=== PATIENT | female | born 1990 | race Caucasian/White ===

== ENCOUNTER 2018-04-16 14:35 | Emergency (ER) | payer MEDICARE, MEDICAID ==
[~2018-04-16] VITALS: Ht 154.9 cm; Wt 50.0 kg
[~2018-04-16 14:35] MED LIST: ATI0.5T PO; BACL10TA PO; CEPH500C5 PO; DULO-31 PO; GABA400C PO; LEVA15HF4 INH
[2018-04-16] MEDS ORDERED: diphenhydrAMINE 25mg capsule PO ONE (16:20)
[2018-04-16] MEDS ORDERED: acetaminophen 325mg tablet PO ONE (16:20)
[2018-04-16 16:58] VITALS: BP 101/58
== END 2018-04-16 17:00 | disposition home or self-care (01) ==
LOC: ER 14:36
DX: G25.2 Other specified forms of tremor (principal); J45.909 Unspecified asthma, uncomplicated; G89.29 Other chronic pain; F41.9 Anxiety disorder, unspecified; F12.90 Cannabis use, unspecified, uncomplicated; Z98.890 Other specified postprocedural states; Z56.0 Unemployment, unspecified; Z79.899 Other long term (current) drug therapy
CPT/HCPCS: 99283; Q0163

== ENCOUNTER 2018-05-27 11:43 | Emergency (ER) | payer MEDICARE, MEDICAID ==
[~2018-05-27] VITALS: Ht 157.5 cm; Wt 49.0 kg
[2018-05-27 11:48] VITALS: BP 107/73
== END 2018-05-27 12:49 | disposition home or self-care (01) ==
LOC: ER 11:44
DX: G89.4 Chronic pain syndrome (principal); J45.909 Unspecified asthma, uncomplicated; F12.90 Cannabis use, unspecified, uncomplicated; Z56.0 Unemployment, unspecified; Z98.890 Other specified postprocedural states
CPT/HCPCS: 99284

== ENCOUNTER 2019-11-01 18:25 | Emergency (ER) | payer MEDICARE, MEDICAID ==
[~2019-11-01] VITALS: Ht 160 cm; Wt 70.5 kg
[~2019-11-01 18:25] MED LIST changes: -CEPH500C5 PO
[2019-11-01 19:32] LABS: HEMOGLOBIN 13.4 g/dl (12.0-16.0); MEAN PLATELET VOLUME 8.2 FL (7.4-10.4); RED BLOOD COUNT 4.32 X10'6 (4.20-5.60)
[2019-11-01 19:34] LABS: BASOPHILS % (AUTO) 0.5 % (0-1); EOSINOPHILS # (AUTO) 0.2 X10'3 (0-0.9); EOSINOPHILS % (AUTO) 2.7 % (0-6); LYMPHOCYTES # (AUTO) 2.3 X10'3 (1.1-4.8); LYMPHOCYTES % (AUTO) 38.2 % (21-51); MEAN CORPUSCULAR HGB CONC 34.4 g/dL (33.0-36.5); MEAN CORPUSCULAR VOLUME 90.1 FL (78-98); MONOCYTES # (AUTO) 0.6 X10'3 (0-0.9); MONOCYTES % (AUTO) 10.1 % (2-12); NEUTROPHILS # (AUTO) 2.9 X10'3 (1.8-7.7); NEUTROPHILS % (AUTO) 48.5 % (42-75); PLATELET COUNT 227 X10'3 (140-440); RED CELL DISTRIBUTION WIDTH 12.9 % (11.5-14.5)
[2019-11-01 19:57] LABS: ALANINE AMINOTRANSFERASE 30 U/L (12-78); ALBUMIN 3.7 G/DL (3.4-5.0); ALBUMIN/GLOBULIN RATIO 1.2 (1.1-1.5); ALKALINE PHOSPHATASE 47 IU/L (46-116); ANION GAP 9 (8-16); ASPARTATE AMINO TRANSFERASE 21 U/L (10-37); BILIRUBIN,TOTAL 0.3 MG/DL (0.1-1.0); BLOOD UREA NITROGEN 9 MG/DL (7-18); BUN/CREATININE RATIO 11.5 (6.6-38.0); CHLORIDE 103 MMOL/L (99-107); CREATININE 0.78 MG/DL (0.40-0.90); GLUCOSE 86 MG/DL (70-104); LIPASE 99 U/L (73-393); POTASSIUM 3.8 MMOL/L (3.5-5.1); SODIUM 140 MMOL/L (135-145); TOTAL CARBON DIOXIDE 28.1 MMOL/L (24-32); TOTAL PROTEIN 6.7 G/DL (6.4-8.2); eGFR 88 ML/MIN
[2019-11-01 20:13] LABS: URINE HCG NEGATIVE (NEG)
[2019-11-01 20:14] LABS: CLARITY,URINE CLEAR (Clear); COLOR,URINE YELLOW (Yellow); GLUCOSE, URINE NEGATIVE (Neg); KETONES,URINE NEGATIVE (Neg); LEUKOCYTE ESTERASE ,URINE NEGATIVE (Neg); NITRITES, URINE NEGATIVE (Neg); OCCULT BLOOD,URINE NEGATIVE (Neg); PROTEIN,URINE NEGATIVE (Neg); UROBILINOGEN,URINE 0.2 E.U/dL (0.2-1.0)
[2019-11-01 20:15] LABS: UA COLLECTION TYPE CLN CATCH MIDSTREAM
[2019-11-01 21:02] VITALS: BP 122/71
== END 2019-11-01 21:03 | disposition home or self-care (01) ==
LOC: ER 18:26
DX: R10.31 Right lower quadrant pain (principal); R10.32 Left lower quadrant pain; R11.2 Nausea with vomiting, unspecified; J45.909 Unspecified asthma, uncomplicated; N83.8 Other noninflammatory disorders of ovary, fallopian tube and broad ligament; G89.29 Other chronic pain; F12.90 Cannabis use, unspecified, uncomplicated; Z98.890 Other specified postprocedural states; Z56.0 Unemployment, unspecified; Z79.899 Other long term (current) drug therapy
CPT/HCPCS: 36415; 80053; 81003; 81025; 83690; 85025; 99283

== ENCOUNTER 2020-05-15 19:27 | Emergency (ER) | payer MEDICARE, MEDICAID ==
[~2020-05-15] VITALS: Ht 157.5 cm; Wt 79.0 kg
[2020-05-15 19:33] VITALS: BP 135/92
== END 2020-05-15 23:15 | disposition home or self-care (01) ==
LOC: ER 19:28
DX: S63.91XA Sprain of unspecified part of right wrist and hand, initial encounter (principal); J45.909 Unspecified asthma, uncomplicated; G89.29 Other chronic pain; F12.90 Cannabis use, unspecified, uncomplicated; Z56.0 Unemployment, unspecified; Z79.899 Other long term (current) drug therapy; X58.XXXA Exposure to other specified factors, initial encounter; Y93.89 Activity, other specified; Y92.89 Other specified places as the place of occurrence of the external cause; Y99.8 Other external cause status
CPT/HCPCS: 99282

== ENCOUNTER 2020-07-26 20:16 | Emergency (ER) | payer MEDICARE, MEDICAID ==
[~2020-07-26] VITALS: Ht 157.5 cm; Wt 77.0 kg
[2020-07-26] MEDS ORDERED: albuterol 2.5 MG/3 ML nebule NEB ONE (20:30)
[2020-07-26] MEDS ORDERED: predniSONE 20 mg tablet PO ONE (21:10)
[2020-07-26] MEDS ORDERED: PRED20TA PO (21:10)
[2020-07-26 21:26] VITALS: BP 121/80
== END 2020-07-26 21:28 | disposition home or self-care (01) ==
LOC: ER 21:06
DX: J45.909 Unspecified asthma, uncomplicated (principal); G89.29 Other chronic pain; F12.90 Cannabis use, unspecified, uncomplicated; Z56.0 Unemployment, unspecified; Z98.890 Other specified postprocedural states; Z79.899 Other long term (current) drug therapy
CPT/HCPCS: 94640; 99283; J7512; 94760

== ENCOUNTER 2020-07-27 23:55 | Emergency (ER) | payer MEDICARE, MEDICAID ==
[~2020-07-27] VITALS: Ht 157.5 cm; Wt 77.0 kg
[~2020-07-27 23:55] MED LIST changes: +PRED20TA PO
[2020-07-28] MEDS ORDERED: morphine 10mg/ml inj. IV ONE ×2 (00:25→02:00)
[2020-07-28 00:44] LABS: BASOPHILS % (AUTO) 0.2 % (0-1); EOSINOPHILS % (AUTO) 0 % (0-6); HEMATOCRIT 36.2 % (35.0-45.0); HEMOGLOBIN 12.2 g/dl (12.0-16.0); LYMPHOCYTES # (AUTO) 1.2 X10'3 (1.1-4.8); MEAN CORPUSCULAR HEMOGLOBIN 30.9 PG (27.0-31.0); MEAN CORPUSCULAR HGB CONC 33.7 g/dL (33.0-36.5); MEAN CORPUSCULAR VOLUME 91.8 FL (78-98); MEAN PLATELET VOLUME 7.4 FL (7.4-10.4); MONOCYTES # (AUTO) 0.3 X10'3 (0-0.9); MONOCYTES % (AUTO) 1.8 % (2-12); NEUTROPHILS # (AUTO) 13.4 X10'3 (1.8-7.7); PLATELET COUNT 318 X10'3 (140-440); RED BLOOD COUNT 3.94 X10'6 (4.20-5.60); RED CELL DISTRIBUTION WIDTH 12.7 % (11.5-14.5); WHITE BLOOD COUNT 14.9 X10'3 (4.5-11.0)
[2020-07-28 00:48] LABS: ALBUMIN 3.3 G/DL (3.4-5.0); ANION GAP 9 (8-16); BLOOD UREA NITROGEN 11 MG/DL (7-18); BUN/CREATININE RATIO 12.6 (6.6-38.0); CALCIUM 8.9 MG/DL (8.5-10.1); CHLORIDE 103 MMOL/L (99-107); CREATININE 0.87 MG/DL (0.40-0.90); GLUCOSE 113 MG/DL (70-104); POTASSIUM 4.3 MMOL/L (3.5-5.1); SODIUM 139 MMOL/L (135-145); TOTAL CARBON DIOXIDE 27.4 MMOL/L (24-32); eGFR 77 ML/MIN
[2020-07-28] MEDS ORDERED: iohexol 300mg/ml 100ml inj. ONE (02:22)
[2020-07-28 02:40] LABS: HCG SERUM QL NEGATIVE
[2020-07-28] MEDS ORDERED: morphine 4 MG/ML inj SYRINge IV ONE (04:50)
[2020-07-28] MEDS ORDERED: DICY10CA88 PO (04:50)
[2020-07-28 05:10] VITALS: BP 102/73
[2020-07-28 15:32] LABS: OCCULT BLOOD STOOL NEGATIVE (Neg)
== END 2020-07-28 05:12 | disposition home or self-care (01) ==
LOC: ER 23:56
DX: R10.30 Lower abdominal pain, unspecified (principal); J45.909 Unspecified asthma, uncomplicated; F41.9 Anxiety disorder, unspecified; G89.29 Other chronic pain; F12.90 Cannabis use, unspecified, uncomplicated; Z98.890 Other specified postprocedural states; Z56.0 Unemployment, unspecified; Z79.899 Other long term (current) drug therapy
CPT/HCPCS: 36415; 74177; 76830; 76856; 80048; 82272; 84703; 85025; 93976; 96374; 96376; 99285; J2270; Q9967

== ENCOUNTER 2020-08-18 19:04 | Emergency (ER) | payer MEDICARE, MEDICAID ==
[~2020-08-18] VITALS: Ht 157.5 cm; Wt 77.3 kg
[~2020-08-18 19:04] MED LIST changes: +DICY10CA88 PO; -PRED20TA PO
[2020-08-18] MEDS ORDERED: ondansetron/PF 4mg/2ml inj IV ONE (19:40)
[2020-08-18] MEDS ORDERED: LORazepam 2 mg/ml vial IV ONE ×2 (19:40→22:50)
[2020-08-18] MEDS ORDERED: morphine 10mg/ml inj. IV ONE ×2 (19:40→21:25)
[2020-08-18 20:02] LABS: CLARITY,URINE CLEAR (Clear); COLOR,URINE YELLOW (Yellow); GLUCOSE, URINE NEGATIVE (Neg); KETONES,URINE TRACE mg/dl (Neg); LEUKOCYTE ESTERASE ,URINE NEGATIVE (Neg); NITRITES, URINE NEGATIVE (Neg); OCCULT BLOOD,URINE NEGATIVE (Neg); PROTEIN,URINE NEGATIVE (Neg)
[2020-08-18 20:03] LABS: URINE HCG NEGATIVE (NEG)
[2020-08-18 20:05] LABS: UA COLLECTION TYPE CLN CATCH MIDSTREAM
[2020-08-18 20:44] LABS: BASOPHILS % (AUTO) 0.8 % (0-1); EOSINOPHILS # (AUTO) 0.2 X10'3 (0-0.9); EOSINOPHILS % (AUTO) 2.6 % (0-6); HEMATOCRIT 36.8 % (35.0-45.0); HEMOGLOBIN 12.4 g/dl (12.0-16.0); LYMPHOCYTES # (AUTO) 2.4 X10'3 (1.1-4.8); LYMPHOCYTES % (AUTO) 39.3 % (21-51); MEAN CORPUSCULAR HEMOGLOBIN 30.7 PG (27.0-31.0); MEAN CORPUSCULAR HGB CONC 33.7 g/dL (33.0-36.5); MEAN PLATELET VOLUME 7.7 FL (7.4-10.4); MONOCYTES # (AUTO) 0.4 X10'3 (0-0.9); MONOCYTES % (AUTO) 6.3 % (2-12); NEUTROPHILS # (AUTO) 3.1 X10'3 (1.8-7.7); PLATELET COUNT 306 X10'3 (140-440); RED BLOOD COUNT 4.04 X10'6 (4.20-5.60); RED CELL DISTRIBUTION WIDTH 12.4 % (11.5-14.5)
[2020-08-18 20:59] LABS: ALANINE AMINOTRANSFERASE 35 U/L (12-78); ALBUMIN 3.8 G/DL (3.4-5.0); ALBUMIN/GLOBULIN RATIO 1.2 (1.1-1.5); ALKALINE PHOSPHATASE 40 IU/L (46-116); ANION GAP 5 (8-16); ASPARTATE AMINO TRANSFERASE 23 U/L (10-37); BILIRUBIN,TOTAL 0.3 MG/DL (0.1-1.0); BLOOD UREA NITROGEN 15 MG/DL (7-18); BUN/CREATININE RATIO 16.3 (6.6-38.0); CALCIUM 8.8 MG/DL (8.5-10.1); CHLORIDE 105 MMOL/L (99-107); CREATININE 0.92 MG/DL (0.40-0.90); GLUCOSE 119 MG/DL (70-104); LIPASE 81 U/L (73-393); POTASSIUM 3.6 MMOL/L (3.5-5.1); SODIUM 139 MMOL/L (135-145); TOTAL CARBON DIOXIDE 28.8 MMOL/L (24-32); TOTAL PROTEIN 6.9 G/DL (6.4-8.2); eGFR 72 ML/MIN
[2020-08-18] MEDS ORDERED: mag hydrox/Alum hydrox/simeth 30ml oral suspension PO ONE (21:25)
[2020-08-18] MEDS ORDERED: pantoprazole 40mg Tablet.DR PO ONE (21:25)
[2020-08-18] MEDS ORDERED: LIDOcaine Viscous 15ml cup MM ONE (21:25)
[2020-08-18 22:39] VITALS: BP 110/79
[2020-08-18] MEDS ORDERED: ketorolac trometh. 30mg/ml inj. IV ONE (22:50)
[2020-08-19] MEDS ORDERED: fentaNYL/PF 50MCG/1 ML 2ML syringe IV ONE
== END 2020-08-19 00:47 | disposition home or self-care (01) ==
LOC: ER 19:05
DX: R10.30 Lower abdominal pain, unspecified (principal); J45.909 Unspecified asthma, uncomplicated; G89.29 Other chronic pain; F41.9 Anxiety disorder, unspecified; F17.200 Nicotine dependence, unspecified, uncomplicated; F12.90 Cannabis use, unspecified, uncomplicated; Z98.890 Other specified postprocedural states; Z56.0 Unemployment, unspecified; Z79.899 Other long term (current) drug therapy
CPT/HCPCS: 36415; 74176; 76856; 80053; 81003; 81025; 83690; 85025; 93976; 96374; 96375; 96376; 99285; J1885; J2060; J2270; J2405; J3010

== ENCOUNTER 2020-09-05 06:22 | Emergency (ER) | payer MEDICARE, MEDICAID ==
[~2020-09-05] VITALS: Ht 157.5 cm; Wt 77.0 kg
[2020-09-05] MEDS ORDERED: normal saline 1000ML IV soln IVB ONE (06:45)
[2020-09-05] MEDS ORDERED: LORazepam 2 mg/ml vial IV ONE (06:45)
[2020-09-05] MEDS ORDERED: fentaNYL/PF 50MCG/1 ML 2ML syringe IV ONE (06:45)
[2020-09-05] MEDS ORDERED: haloperidol lactate 5mg/ml inj IM ONE (06:45)
[2020-09-05 07:11] LABS: BASOPHILS % (AUTO) 0.7 % (0-1); EOSINOPHILS # (AUTO) 0.2 X10'3 (0-0.9); EOSINOPHILS % (AUTO) 3.8 % (0-6); HEMATOCRIT 35.5 % (35.0-45.0); HEMOGLOBIN 12.3 g/dl (12.0-16.0); LYMPHOCYTES # (AUTO) 1.9 X10'3 (1.1-4.8); LYMPHOCYTES % (AUTO) 39.5 % (21-51); MEAN CORPUSCULAR HEMOGLOBIN 31.5 PG (27.0-31.0); MEAN CORPUSCULAR HGB CONC 34.6 g/dL (33.0-36.5); MEAN PLATELET VOLUME 7.1 FL (7.4-10.4); MONOCYTES # (AUTO) 0.5 X10'3 (0-0.9); MONOCYTES % (AUTO) 10.4 % (2-12); NEUTROPHILS # (AUTO) 2.2 X10'3 (1.8-7.7); NEUTROPHILS % (AUTO) 45.6 % (42-75); PLATELET COUNT 276 X10'3 (140-440); RED CELL DISTRIBUTION WIDTH 12.5 % (11.5-14.5); WHITE BLOOD COUNT 4.7 X10'3 (4.5-11.0)
[2020-09-05 07:23] LABS: ALANINE AMINOTRANSFERASE 37 U/L (12-78); ALBUMIN 3.5 G/DL (3.4-5.0); ALBUMIN/GLOBULIN RATIO 1.1 (1.1-1.5); ALKALINE PHOSPHATASE 41 IU/L (46-116); ANION GAP 10 (8-16); ASPARTATE AMINO TRANSFERASE 19 U/L (10-37); BILIRUBIN,TOTAL 0.2 MG/DL (0.1-1.0); BLOOD UREA NITROGEN 12 MG/DL (7-18); BUN/CREATININE RATIO 15.6 (6.6-38.0); CALCIUM 8.5 MG/DL (8.5-10.1); CHLORIDE 104 MMOL/L (99-107); CREATININE 0.77 MG/DL (0.40-0.90); GLUCOSE 93 MG/DL (70-104); LIPASE 97 U/L (73-393); POTASSIUM 4.2 MMOL/L (3.5-5.1); SODIUM 139 MMOL/L (135-145); TOTAL CARBON DIOXIDE 25.5 MMOL/L (24-32); TOTAL PROTEIN 6.7 G/DL (6.4-8.2); eGFR 89 ML/MIN
[2020-09-05 09:05] VITALS: BP 108/76
== END 2020-09-05 09:06 | disposition home or self-care (01) ==
LOC: ER 06:23
DX: R11.15 Cyclical vomiting syndrome unrelated to migraine (principal); R10.30 Lower abdominal pain, unspecified; J45.909 Unspecified asthma, uncomplicated; G89.29 Other chronic pain; F41.9 Anxiety disorder, unspecified; Z98.890 Other specified postprocedural states; Z56.0 Unemployment, unspecified; Z79.899 Other long term (current) drug therapy
CPT/HCPCS: 36415; 80053; 83690; 85025; 96361; 96372; 96374; 96375; 99285; J1630; J2060; J3010; J7030

== ENCOUNTER 2020-09-11 15:05 | Emergency (ER) | payer MEDICARE, MEDICAID ==
[~2020-09-11] VITALS: Ht 157.5 cm; Wt 77.0 kg
[2020-09-11] MEDS ORDERED: haloperidol lactate 5mg/ml inj IM ONE (15:25)
[2020-09-11] MEDS ORDERED: LORazepam 2 mg/ml vial IM ONE (15:25)
[2020-09-11] MEDS ORDERED: morphine 4 MG/ML inj SYRINge IM ONE (15:55)
--- NOTE | 2020-09-11 15:56 | NUR ---
Pt still c/o pain and is sobbing after receiving pain medication. RUI Nix aware. Awaiting additional medication orders.
--- NOTE | 2020-09-11 16:27 | NUR ---
Pt states pain is tolerable and she is ready to be d/c home. Provider aware.
[2020-09-11 16:36] VITALS: BP 119/43
== END 2020-09-11 16:38 | disposition home or self-care (01) ==
LOC: ER 15:05
DX: N80.9 Endometriosis, unspecified (principal); R10.30 Lower abdominal pain, unspecified; J45.909 Unspecified asthma, uncomplicated; G89.29 Other chronic pain; F41.9 Anxiety disorder, unspecified; Z98.890 Other specified postprocedural states; Z56.0 Unemployment, unspecified; Z79.899 Other long term (current) drug therapy
CPT/HCPCS: 96372; 99284; J1630; J2060; J2270

== ENCOUNTER 2020-09-13 16:56 | Emergency (ER) | payer MEDICARE, MEDICAID ==
[~2020-09-13] VITALS: Ht 157.5 cm; Wt 77.3 kg
[2020-09-13] MEDS ORDERED: morphine 4 MG/ML inj SYRINge IV ONE (17:50)
[2020-09-13] MEDS ORDERED: normal saline 1000ML IV soln IVB ONE ×2 (17:50→21:25)
[2020-09-13] MEDS ORDERED: ondansetron/PF 4mg/2ml inj IV ONE (17:50)
[2020-09-13] MEDS ORDERED: pantoprazole 40 MG vial IV ONE (17:50)
[2020-09-13] MEDS ORDERED: LORazepam 2 mg/ml vial IV ONE ×2 (17:50→22:15)
[2020-09-13] MEDS ORDERED: acetaminophen 325mg tablet PO ONE (18:00)
[2020-09-13 18:26] LABS: BASOPHILS % (AUTO) 0.3 % (0-1); EOSINOPHILS # (AUTO) 0.1 X10'3 (0-0.9); EOSINOPHILS % (AUTO) 1.1 % (0-6); HEMATOCRIT 35.3 % (35.0-45.0); HEMOGLOBIN 12.2 g/dl (12.0-16.0); LYMPHOCYTES % (AUTO) 9.7 % (21-51); MEAN CORPUSCULAR HEMOGLOBIN 31.3 PG (27.0-31.0); MEAN CORPUSCULAR HGB CONC 34.5 g/dL (33.0-36.5); MEAN CORPUSCULAR VOLUME 90.8 FL (78-98); MEAN PLATELET VOLUME 7.3 FL (7.4-10.4); MONOCYTES # (AUTO) 0.8 X10'3 (0-0.9); MONOCYTES % (AUTO) 7.2 % (2-12); NEUTROPHILS # (AUTO) 8.6 X10'3 (1.8-7.7); NEUTROPHILS % (AUTO) 81.7 % (42-75); PLATELET COUNT 250 X10'3 (140-440); RED BLOOD COUNT 3.88 X10'6 (4.20-5.60); RED CELL DISTRIBUTION WIDTH 12.1 % (11.5-14.5); WHITE BLOOD COUNT 10.5 X10'3 (4.5-11.0)
[2020-09-13 18:41] LABS: ALANINE AMINOTRANSFERASE 24 U/L (12-78); ALBUMIN 3.4 G/DL (3.4-5.0); ALBUMIN/GLOBULIN RATIO 0.9 (1.1-1.5); ALKALINE PHOSPHATASE 48 IU/L (46-116); ANION GAP 12 (8-16); ASPARTATE AMINO TRANSFERASE 16 U/L (10-37); BILIRUBIN,TOTAL 0.3 MG/DL (0.1-1.0); BLOOD UREA NITROGEN 9 MG/DL (7-18); BUN/CREATININE RATIO 9.7 (6.6-38.0); CALCIUM 8.7 MG/DL (8.5-10.1); CHLORIDE 100 MMOL/L (99-107); CREATININE 0.93 MG/DL (0.40-0.90); GLUCOSE 93 MG/DL (70-104); LIPASE 69 U/L (73-393); SODIUM 138 MMOL/L (135-145); TOTAL CARBON DIOXIDE 25.8 MMOL/L (24-32); TOTAL PROTEIN 7.1 G/DL (6.4-8.2); eGFR 71 ML/MIN
[2020-09-13 18:44] LABS: HCG SERUM QL NEGATIVE
[2020-09-13 19:56] LABS: CLARITY,URINE CLOUDY (Clear); COLOR,URINE YELLOW (Yellow); GLUCOSE, URINE NEGATIVE (Neg); KETONES,URINE NEGATIVE (Neg); LEUKOCYTE ESTERASE ,URINE SMALL (Neg); NITRITES, URINE NEGATIVE (Neg); OCCULT BLOOD,URINE NEGATIVE (Neg); PH,URINE 7.5 (4.8-8.0); PROTEIN,URINE NEGATIVE (Neg); UROBILINOGEN,URINE 0.2 E.U/dL (0.2-1.0)
[2020-09-13 20:04] LABS: UA COLLECTION TYPE CLN CATCH MIDSTREAM
[2020-09-13 20:05] LABS: BACTERIA,URINE FEW /HPF (Neg); RBC,URINE NONE SEEN /HPF (0-2); SQUAMOUS EPITHELIAL CELL,UR MODERATE /LPF (FEW); WBC,URINE 0-4 /HPF (0-4)
[2020-09-13] MEDS: morphine 2 MG/ML inj. syringe IV PRN ×3 (20:19→23:04)
--- NOTE | 2020-09-13 20:20 | NUR ---
RIGHT NARES SWABED FOR [place] RAPID
--- NOTE | 2020-09-13 21:58 | NUR ---
relieving RN for break, pt is resting quietly on gurney in dark room, said pain is 5/10 "I am fine for right now"
[2020-09-13 23:36] VITALS: BP 127/76
== END 2020-09-13 23:30 | disposition home or self-care (01) ==
LOC: ER 16:56
DX: R10.816 Epigastric abdominal tenderness (principal); R50.9 Fever, unspecified; J45.909 Unspecified asthma, uncomplicated; G89.29 Other chronic pain; F41.9 Anxiety disorder, unspecified; R10.31 Right lower quadrant pain; R10.32 Left lower quadrant pain; Z56.0 Unemployment, unspecified; Z79.899 Other long term (current) drug therapy
CPT/HCPCS: 36415; 71045; 80053; 81001; 83605; 83690; 84703; 85025; 87040; 87088; 87635; 93005; 96361; 96374; 96375; 96376; 99285; C9113; C9803; J2060; J2270; J2405; J7030

== ENCOUNTER 2021-08-15 17:41 | Emergency (ER) | payer MEDICARE, MEDICAID ==
[~2021-08-15] VITALS: Ht 165.1 cm; Wt 80.9 kg
[2021-08-15] MEDS ORDERED: LORazepam 2 mg/ml vial IM ONE (21:50)
[2021-08-15 23:53] VITALS: BP 119/83
[2021-08-15 23:54] LABS: URINE HCG NEGATIVE (NEG)
[2021-08-16 00:01] LABS: BASOPHILS # (AUTO) 0.1 X10'3 (0-0.2); BASOPHILS % (AUTO) 1.8 % (0-1); EOSINOPHILS # (AUTO) 0.1 X10'3 (0-0.9); HEMATOCRIT 37.9 % (35.0-45.0); HEMOGLOBIN 12.9 g/dl (12.0-16.0); LYMPHOCYTES # (AUTO) 1.3 X10'3 (1.1-4.8); LYMPHOCYTES % (AUTO) 17.7 % (21-51); MEAN CORPUSCULAR HEMOGLOBIN 30.6 PG (27.0-31.0); MEAN CORPUSCULAR HGB CONC 34.1 g/dL (33.0-36.5); MEAN CORPUSCULAR VOLUME 89.7 FL (78-98); MEAN PLATELET VOLUME 7.6 FL (7.4-10.4); MONOCYTES # (AUTO) 0.2 X10'3 (0-0.9); NEUTROPHILS # (AUTO) 5.6 X10'3 (1.8-7.7); NEUTROPHILS % (AUTO) 76.5 % (42-75); PLATELET COUNT 331 X10'3 (140-440); RED BLOOD COUNT 4.22 X10'6 (4.20-5.60); RED CELL DISTRIBUTION WIDTH 13.4 % (11.5-14.5); WHITE BLOOD COUNT 7.3 X10'3 (4.5-11.0)
[2021-08-16 00:07] LABS: URINE AMPHETAMINE SCREEN POSITIVE (Neg); URINE BARBITUATE SCREEN NEGATIVE (Neg); URINE BENZODIAZEPINES SCREEN NEGATIVE (Neg); URINE CANNABINOID SCREEN NEGATIVE (Neg); URINE COCAINE SCREEN NEGATIVE (Neg); URINE METHADONE SCREEN NEGATIVE (Neg); URINE OPIATE SCREEN POSITIVE (Neg); URINE PHENCYCLIDINE SCREEN NEGATIVE (Neg)
[2021-08-16 00:11] LABS: ALANINE AMINOTRANSFERASE 27 U/L (12-78); ALBUMIN 3.8 G/DL (3.4-5.0); ALBUMIN/GLOBULIN RATIO 1.1 (1.1-1.5); ALKALINE PHOSPHATASE 63 IU/L (46-116); ANION GAP 7 (8-16); ASPARTATE AMINO TRANSFERASE 19 U/L (10-37); BILIRUBIN,TOTAL 0.4 MG/DL (0.1-1.0); BLOOD UREA NITROGEN 11 MG/DL (7-18); BUN/CREATININE RATIO 14.9 (6.6-38.0); CALCIUM 8.6 MG/DL (8.5-10.1); CHLORIDE 105 MMOL/L (99-107); CREATININE 0.74 MG/DL (0.40-0.90); GLUCOSE 85 MG/DL (70-104); POTASSIUM 3.8 MMOL/L (3.5-5.1); SODIUM 137 MMOL/L (135-145); TOTAL CARBON DIOXIDE 25.5 MMOL/L (24-32); TOTAL PROTEIN 7.3 G/DL (6.4-8.2); eGFR > 90 ML/MIN
[2021-08-16 00:18] LABS: UA COLLECTION TYPE CLN CATCH MIDSTREAM
[2021-08-16 00:19] LABS: ETHANOL < 0.010 GM/DL (0.0-0.010)
[2021-08-16 00:23] LABS: CLARITY,URINE TURBID (Clear); COLOR,URINE DARK YELLOW (Yellow); GLUCOSE, URINE NEGATIVE (Neg); KETONES,URINE 80 mg/dl (Neg); NITRITES, URINE NEGATIVE (Neg); OCCULT BLOOD,URINE LARGE (Neg); PROTEIN,URINE TRACE mg/dl (Neg)
[2021-08-16 00:24] LABS: LEUKOCYTE ESTERASE ,URINE SMALL (Neg); UROBILINOGEN,URINE 0.2 E.U/dL (0.2-1.0)
[2021-08-16 00:36] LABS: SQUAMOUS EPITHELIAL CELL,UR MANY /LPF (FEW)
[2021-08-16 00:37] LABS: MUCUS STRANDS MANY /LPF (Neg)
[2021-08-16 00:38] LABS: BACTERIA,URINE 2+ /HPF (Neg)
[2021-08-16 00:39] LABS: WBC,URINE 20-30 /HPF (0-4)
--- NOTE | 2021-08-16 03:28 | NUR ---
PATIENT' PACKET WAS SENT TO [facility].
--- NOTE | 2021-08-16 07:38 | NUR ---
PT RESTING WITH EYES CLOSED, EFFORTLESS RESPIRATIONS OBSERVED.
[2021-08-16] MEDS ORDERED: GABA600T13 PO (08:27)
[2021-08-16] MEDS ORDERED: IBUP-1985 PO (08:38)
[2021-08-16] MEDS ORDERED: OXYC-150 PO (08:38)
[2021-08-16] MEDS ORDERED: CYCL5TAB14 PO (08:38)
[2021-08-16] MEDS ORDERED: DICL75TA5 PO (08:38)
[2021-08-16] MEDS ORDERED: OMEP10SU2 PO (08:38)
[2021-08-16] MEDS ORDERED: ALBU18HF2 INH (08:38)
[2021-08-16] MEDS ORDERED: HYDR-3686 PO (08:38)
[2021-08-16] MEDS ORDERED: duloxetine 30mg CAPSULE.DR PO SCH (09:40)
[2021-08-16] MEDS ORDERED: hydrOXYzine 25 MG tablet PO SCH (09:40)
[2021-08-16] MEDS ORDERED: oxyCODONE/APAP 10/325mg tablet PO SCH (09:41)
[2021-08-16] MEDS ORDERED: gabapentin 300mg capsule PO SCH (09:41)
[2021-08-16] MEDS ORDERED: ibuprofen 200mg tablet PO PRN (09:43)
--- NOTE | 2021-08-16 11:20 | NUR ---
Pt given and understands d/c instructions. Ambulatory with a steady gait.
[2021-08-16] MEDS ORDERED: albuterol 2.5 MG/3 ML nebule NEB PRN (12:00)
[2021-08-17] MEDS ORDERED: pantoprazole 40mg Tablet.DR PO SCH (08:00)
== END 2021-08-16 11:20 | disposition home or self-care (01) ==
LOC: ER 17:41
DX: F23 Brief psychotic disorder (principal); Z20.822 Contact with and (suspected) exposure to COVID-19; F41.9 Anxiety disorder, unspecified; J45.909 Unspecified asthma, uncomplicated; G89.29 Other chronic pain; Z88.8 Allergy status to other drugs, medicaments and biological substances; Z79.899 Other long term (current) drug therapy; Z56.0 Unemployment, unspecified
CPT/HCPCS: 36415; 80053; 80305; 80320; 81001; 81025; 84443; 85025; 87635; 96372; 99284; C9803; J2060; Q0177; 81003

== ENCOUNTER 2022-03-06 21:06 | Emergency (ER) | payer MEDICARE, MEDICAID ==
[~2022-03-06] VITALS: Ht 157.5 cm; Wt 9.1 kg
[~2022-03-06 21:06] MED LIST changes: +ALBU18HF2 INH; -ATI0.5T PO; -BACL10TA PO; +CYCL5TAB14 PO; +DICL75TA5 PO; -DICY10CA88 PO; -GABA400C PO; +GABA600T13 PO; +HYDR-3686 PO; +IBUP-1985 PO; -LEVA15HF4 INH; +OMEP10SU2 PO; +OXYC-150 PO
[2022-03-06 21:43] LABS: BASOPHILS % (AUTO) 0.4 % (0-1); EOSINOPHILS # (AUTO) 0.2 X10'3 (0-0.9); HEMATOCRIT 34.4 % (35.0-45.0); HEMOGLOBIN 11.4 g/dl (12.0-16.0); LYMPHOCYTES # (AUTO) 2.5 X10'3 (1.1-4.8); LYMPHOCYTES % (AUTO) 35.2 % (21-51); MEAN CORPUSCULAR HEMOGLOBIN 28.3 PG (27.0-31.0); MEAN CORPUSCULAR VOLUME 85.9 FL (78-98); MEAN PLATELET VOLUME 6.8 FL (7.4-10.4); MONOCYTES # (AUTO) 0.5 X10'3 (0-0.9); MONOCYTES % (AUTO) 6.4 % (2-12); NEUTROPHILS # (AUTO) 3.9 X10'3 (1.8-7.7); PLATELET COUNT 279 X10'3 (140-440); RED BLOOD COUNT 4.01 X10'6 (4.20-5.60); RED CELL DISTRIBUTION WIDTH 14.3 % (11.5-14.5); WHITE BLOOD COUNT 7.2 X10'3 (4.5-11.0)
[2022-03-06 21:54] LABS: ALANINE AMINOTRANSFERASE 36 U/L (12-78); ALBUMIN 3.6 G/DL (3.4-5.0); ALBUMIN/GLOBULIN RATIO 1.1 (1.1-1.5); ALKALINE PHOSPHATASE 63 IU/L (46-116); ANION GAP 10 (8-16); ASPARTATE AMINO TRANSFERASE 21 U/L (10-37); BILIRUBIN,TOTAL 0.2 MG/DL (0.1-1.0); BLOOD UREA NITROGEN 19 MG/DL (7-18); BUN/CREATININE RATIO 19.8 (6.6-38.0); CALCIUM 8.1 MG/DL (8.5-10.1); CHLORIDE 105 MMOL/L (99-107); CREATININE 0.96 MG/DL (0.40-0.90); GLUCOSE 96 MG/DL (70-104); POTASSIUM 4.1 MMOL/L (3.5-5.1); SODIUM 143 MMOL/L (135-145); TOTAL CARBON DIOXIDE 28.4 MMOL/L (24-32); TOTAL PROTEIN 6.9 G/DL (6.4-8.2); eGFR 68 ML/MIN
[2022-03-06 22:27] VITALS: BP 97/67
== END 2022-03-06 22:30 | disposition home or self-care (01) ==
LOC: ER 21:07
DX: R56.9 Unspecified convulsions (principal); R51.9 Headache, unspecified; J45.909 Unspecified asthma, uncomplicated; G89.29 Other chronic pain; F12.90 Cannabis use, unspecified, uncomplicated; Z56.0 Unemployment, unspecified; Z88.8 Allergy status to other drugs, medicaments and biological substances; Z79.899 Other long term (current) drug therapy
CPT/HCPCS: 36415; 70450; 80053; 85025; 99284